=== PATIENT | male | born 1965 | race Two or more races ===

== ENCOUNTER 2022-12-26 16:50 | Emergency (ER) | payer SELFPAY ==
[~2022-12-26] VITALS: Ht 180.3 cm; Wt 100.0 kg
[2022-12-26 16:52] VITALS: BP 146/78
[2022-12-26] MEDS ORDERED: TETANUS, DIPHTHERIA, PERTUSSIS VAC/PF 0.5ML (>10YR OLD) IM ONE (18:15)
== END 2022-12-26 19:55 | disposition home or self-care (01) ==
LOC: ER 17:17
DX: S01.511A Laceration without foreign body of lip, initial encounter (principal); X58.XXXA Exposure to other specified factors, initial encounter; Y93.89 Activity, other specified; Y92.89 Other specified places as the place of occurrence of the external cause; Y99.8 Other external cause status
CPT/HCPCS: 12013; 90471; 90715; 99283